=== PATIENT | female | born 1945 | race Caucasian/White ===

== ENCOUNTER 2016-10-09 19:00 | Emergency (ER) | payer OTHER, MEDICARE ==
[~2016-10-09] VITALS: Ht 160 cm; Wt 81.6 kg
[2016-10-09 19:05] VITALS: BP_SYST 170
--- NOTE | 2016-10-09 19:10 | NUR ---
PT. PLACED IN BED 3, REPORT RECEIVED FROM JENIFFER ENCISO, ASSUMED PT. CARE
--- NOTE | 2016-10-09 19:15 | NUR ---
PT. TO ER Irvin4 PRESENTED FROM HOME FOR CHEST PAIN, STATES THAT IT HAS BEEN A YEAR SINCE THIS PAIN PRESENTS ON AND OFF, STATES THAT THE PAIN COMES AFTER EATING FOOD RADIATES TO RIGHT ARM SUBSIDES AT REST, PAIN 3/10 AT THIS TIME, PRESENTS WITH FREQUENT BURPING, EDEMA TO ALL EXTREMITIES, SPEECH CLEAR, FOLLOWS COMMANDS, AT BEDSIDE, ON SLOT MANAGER
--- NOTE | 2016-10-09 19:22 | NUR ---
X RAY AT BEDSIDE
--- NOTE | 2016-10-09 19:30 | NUR ---
DR. ENRIQUE AT BEDSIDE EXAMINING THE PT.
[2016-10-09] MEDS ORDERED: FAMOTIDINE PF 20 MG/2 ML VIAL IVP ONE (20:00)
--- NOTE | 2016-10-09 20:05 | NUR ---
LAB AT BEDSIDE TO DRAW BLOOD
--- NOTE | 2016-10-09 20:15 | NUR ---
CARE ENDORSED TO CASTILLO ENCISO
[2016-10-09 20:28] LABS: BASOPHILS # (AUTO) 0.1 K/uL (0.0-0.2); BASOPHILS % (AUTO) 1.1 % (0.0-2.0); EOSINOPHILS # (AUTO) 0.1 K/uL (0.0-0.4); EOSINOPHILS % (AUTO) 1.3 % (0.0-4.0); HEMATOCRIT 35.2 % (36-48); LYMPHOCYTES # (AUTO) 3.2 K/uL (1.0-5.5); LYMPHOCYTES % (AUTO) 37.3 % (20.5-51.5); MEAN CORPUSCULAR HEMOGLOBIN 28 pg (27-31); MEAN CORPUSCULAR HGB CONC 34 % (32-36); MEAN CORPUSCULAR VOLUME 83 fL (79.0-98.0); MONOCYTES # (AUTO) 0.6 K/uL (0.0-1.0); MONOCYTES % (AUTO) 6.8 % (1.7-9.3); NEUTROPHILS # (AUTO) 4.5 K/uL (1.8-7.7); NEUTROPHILS % (AUTO) 53.5 % (40.0-70.0); PLATELET COUNT (AUTO) 257 K/uL (130-430); RED BLOOD CELL COUNT(AUTO) 4.22 MIL/uL (4.2-6.2); RED CELL DISTRIBUTION WIDTH 13.5 % (9.0-15.0); WHITE BLOOD COUNT (AUTO) 8.5 K/uL (4.8-10.8)
[2016-10-09 20:37] LABS: PROTHROMBIN TIME 10.4 SECS (9.5-12.5)
[2016-10-09 20:45] LABS: CALCIUM 8.6 mg/dL (8.4-11.0); CREATININE 0.88 mg/dL (0.55-1.30); POTASSIUM 3.2 mmol/L (3.5-5.1)
[2016-10-09 20:51] LABS: ALBUMIN 3.4 g/dL (3.4-4.8); TOTAL BILIRUBIN 0.2 mg/dL (0.0-1.0)
[2016-10-09] MEDS ORDERED: POTASSIUM CHLORIDE 20 MEQ TAB.PRT.SR PO ONE (21:00)
[2016-10-09 21:40] VITALS: BP_SYST 120
--- NOTE | 2016-10-09 21:40 | NUR ---
Patient given written and verbal discharge instructions and verbalizes understanding. ER MD Lnid discussed with patient the results and treatment provided. Patient in stable condition. ID arm band removed. IV catheter removed intact and dressing applied, no active bleeding. Patient educated on pain management and to follow up with PMD. Pain Scale 0/10. Opportunity for questions provided and answered.
== END 2016-10-09 21:40 | disposition home or self-care (01) ==
LOC: SED 19:00
DX: R07.9 Chest pain, unspecified (principal); E87.6 Hypokalemia; I10 Essential (primary) hypertension; E03.9 Hypothyroidism, unspecified
CPT/HCPCS: 36415; 71010; 80053; 83690; 84484; 85025; 85610; 93005; 96374; 99285; J3490